=== PATIENT | male | born 1985 | race Caucasian/White ===

== ENCOUNTER 2018-02-02 06:18 | Emergency (ER) | payer OTHER ==
[2018-02-02 06:28] VITALS: BP 115/71; PULSE 67; RESP 16; TEMP 98.2
--- NOTE | 2018-02-02 07:39 | ED ---
ENT HPI - General Chief complaint: ENT Stated complaint: Earache Time Seen by Provider: 02/02/18 07:26 Source: patient, RN notes reviewed, old records reviewed Mode of arrival: ambulatory Limitations: no limitations - History of Present Illness Initial comments: This is a 32-year-old male the ER for evaluation. Patient presents to emergency department today with right-sided ear pain. Patient does have recent history of tube placement in right ear. Patient does follow with ENT. Unable to get appointment today. Symptoms or last night he feels congestion no drainage. No fevers. MD complaint: sore throat, ear pain (Right) -: days(s) (2) Location: R ear Severity: mild Severity scale (1-10): 3 Quality: aching, dull Consistency: constant Improves with: none Worsens with: none Context-Epistaxis: recent surgery/procedure (right ear Tube placement) Associated Symptoms: discharge from ear - Related Data Previous Rx's Medication Instructions Recorded Amoxic-Pot Clav 875-125Mg 1 tab PO Q12HR #20 tablet 02/02/18 [Augmentin 875-125] Ofloxacin 0.3% Otic Soln [Floxin 5 drops BOTH EARS BID #10 ml 02/02/18 0.3% Otic Soln] Allergies Allergy/AdvReac Type Severity Reaction Status Date / Time No Known Allergies Allergy Verified 02/02/18 07:07 Review of Systems ROS Statement: Those systems with pertinent positive or pertinent negative responses have been documented in the HPI. ROS Other: All systems not noted in ROS Statement are negative. Past Medical History Past Medical History: No Reported History History of Any Multi-Drug Resistant Organisms: None Reported Additional Past Surgical History / Comment(s): eustachian tube right ear. eye surgery. Past Psychological History: No Psychological Hx Reported Smoking Status: Former smoker Past Alcohol Use History: Occasional Past Drug Use History: None Reported General Exam Limitations: no limitations General appearance: alert, in no apparent distress Head exam: Present: atraumatic, normocephalic, normal inspection Eye exam: Present: normal appearance, PERRL, EOMI. Absent: scleral icterus, conjunctival injection, periorbital swelling ENT exam: Present: normal exam, mucous membranes moist. Absent: TM's normal bilaterally (Right TM obscured, edematous, erythematous R ear canal) Neck exam: Present: normal inspection. Absent: tenderness, meningismus, lymphadenopathy Respiratory exam: Present: normal lung sounds bilaterally. Absent: respiratory distress, wheezes, rales, rhonchi, stridor Cardiovascular Exam: Present: regular rate, normal rhythm, normal heart sounds. Absent: systolic murmur, diastolic murmur, rubs, gallop, clicks GI/Abdominal exam: Present: soft, normal bowel sounds. Absent: distended, tenderness, guarding, rebound, rigid Extremities exam: Present: normal inspection, full ROM, normal capillary refill. Absent: tenderness, pedal edema, joint swelling, calf tenderness Back exam: Present: normal inspection Neurological exam: Present: alert, oriented X3, CN II-XII intact Psychiatric exam: Present: normal affect, normal mood Skin exam: Present: warm, dry, intact, normal color. Absent: rash Course Vital Signs 02/02/18 06:22 Temperature 98.2 F Pulse Rate 67 Respiratory 16 Rate Blood Pressure 115/71 O2 Sat by Pulse 98 Oximetry Medical Decision Making - Medical Decision Making 32 male to ED w R ear pain, will be placed on Abx, and abx gtt, to follow up with ENT. Disposition Clinical Impression: Otitis media, Otitis externa Disposition: HOME SELF-CARE Condition: Good Instructions: Otitis Externa (ED), Earache (ED), Serous Otitis Media (ED) Prescriptions: Amoxic-Pot Clav 875-125Mg [Augmentin 875-125] 1 tab PO Q12HR #20 tablet Ofloxacin 0.3% Otic Soln [Floxin 0.3% Otic Soln] 5 drops BOTH EARS BID #10 ml Is patient prescribed a controlled substance at d/c from ED?: No Referrals: Nonstaff,Physician [REFERRING] - 1-2 days
== END 2018-02-02 07:53 | disposition home or self-care (01) ==
LOC: EC 06:18
DX: H66.91 Otitis media, unspecified, right ear (principal); H60.91 Unspecified otitis externa, right ear; Z87.891 Personal history of nicotine dependence; Z96.22 Myringotomy tube(s) status; Z98.890 Other specified postprocedural states
CPT/HCPCS: 99283